=== PATIENT | male | born 1930 | race Caucasian/White ===

== ENCOUNTER → 2016-12-04 | Outpatient (CLI) | payer OTHER, BC ==
[~2016-12-04] MED LIST: ACETAMINOPHEN325 M1 PO; AMLODIPINE BESYL5 MG; ASPIRIN325 PO; CLONAZEPAM 1 MG1 M1 PO; CLOTRIMAZOLE-BE15 GM TP; CO Q-10100 MG PO; FAMOTIDINE 20 M20 MG PO; FAMOTIDINE PO; FLOMAX PO; FLOMAX0.4 MG PO; HYDROCODONE-AP1 EAC6 PO; LOPRESSOR25 PO; MOBIC7.5 MG PO; OMEPRAZOLE20 M2 PO; PEPCID20 MG PO; PLAVIX 75 MG TA75 MG; PRAVACHOL40 MG PO; TOPROL XL25 MG PO; ZESTRIL20 MG PO
== END ==
LOC: CAT 10:42
DX: R55 Syncope and collapse (principal)

== ENCOUNTER 2017-08-23 11:14 | Emergency (ER) | payer OTHER, BC ==
[~2017-08-23] VITALS: Ht 170.2 cm; Wt 62.6 kg
[2017-08-23 11:16] VITALS: BP 195/92
== END 2017-08-23 14:35 | disposition home or self-care (01) ==
LOC: ER 11:14
DX: S01.111A Laceration without foreign body of right eyelid and periocular area, initial encounter (principal); S09.90XA Unspecified injury of head, initial encounter; K21.9 Gastro-esophageal reflux disease without esophagitis; I10 Essential (primary) hypertension; E78.5 Hyperlipidemia, unspecified; Z86.73 Personal history of transient ischemic attack (TIA), and cerebral infarction without residual deficits; Z85.038 Personal history of other malignant neoplasm of large intestine; Z88.1 Allergy status to other antibiotic agents; W10.9XXA Fall (on) (from) unspecified stairs and steps, initial encounter; Y93.89 Activity, other specified; Y92.89 Other specified places as the place of occurrence of the external cause; Y99.8 Other external cause status

== ENCOUNTER 2018-04-17 11:02 | Inpatient (IN) | payer OTHER, BC ==
[~2018-04-17] VITALS: Ht 170.2 cm; Wt 64.1 kg
--- NOTE | ~2018-04-17 | EKG ---
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
--- NOTE | ~2018-04-17 | EKG ---
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
--- NOTE | ~2018-04-17 | EKG ---
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: milvia : 1930 Requested By: Jens Rachel Order Number: [id number] MD: Lee Moreira Measurements Intervals [place] Rate: 98 P: 39 DE: 146 QRS: -26 QRSD: 93 T: 55 QT: 390 QTc: 499 Interpretive Statements Sinus rhythm Multiform ventricular premature complexes Borderline left axis deviation Compared to ECG 01/04/2016 10:31:45 Ventricular premature complex(es) now present Atrial premature complex(es) no longer present Electronically Signed On 04-18-2018 17:39:15 CDT by Lee Moreira [email or web address] <ELECTRONICALLY SIGNED> By: Lee Moreira MD 04/18/18 1739 1122 1122 Lee Moreira MD /EPI
--- NOTE | ~2018-04-17 | 2DMMODE ---
[facility] [place] [address] 2 D/M-MODE ECHOCARDIOGRAM Name: ERICA RITCHIE Room #: 202-P [facility]#: [id number] Admission: 04/17/18 Attend Phys: Faisal Ahumada, Discharge: Date of : 30 Date of Service: 04/19/18 1202 Report #: [id number] THIS REPORT FOR: //name// APPROVED REPORT Study performed: 04/18/2018 10:13:09 EXAM: Comprehensive 2D, Doppler, and color-flow Echocardiogram Patient Location: Bedside Room #: 206 Status: routine BSA: 1.73 HR: 77 bpm BP: 147/100 mmHg Rhythm: PVC's Risk Factors: Cardiac Risk Factors: HTN, Hyperlipidemia Indications CVA/TIA CAD Hypertension/HDD PAF 2D Dimensions IVSd: 10.06 (7-11mm) LVOT Diam: 19.89 (18-24mm) LVDd: 48.38 mm PWd: 12.53 (7-11mm) Ascending Ao: 29.29 (22-36mm) LVDs: 36.41 (25-40mm) Aortic Root: 32.91 mm IVC: 19.00 mm Volumes Left Atrial Volume (Systole) Single Plane 4CH: 28.48 mL Single Plane 2CH: 32.92 mL LA ESV Index: 21.00 mL/m2 Aortic Valve AoV Peak Hugo.: 0.82 m/s AO Peak Gr.: 3.55 mmHg LVOT Max P.30 mmHg LVOT Max V: 0.76 m/s CARIDAD Vmax: 2.86 cm2 Mitral Valve E/A Ratio: 0.6 [facility] [email or web address] [address] 2 D/M-MODE ECHOCARDIOGRAM Name: ERICA RITCHIE Room #: 202-P [facility]#: [id number] Admission: 04/17/18 Attend Phys: Faisal Ahumada, Discharge: Date of : 30 Date of Service: 04/19/18 1202 Report #: [id number] MV Decel. Time: 341.71 ms MV E Max Hugo.: 0.37 m/s MV A Hugo.: 0.66 m/s MV PHT: 99.10 ms Pulmonary Vein P Vein S: 0.51 m/s P Vein A: 0.24 m/s P Vein D: 0.24 m/s P Vein A Dur.: 155.7 msec P Vein S/D Ratio: 2.13 Tricuspid Valve TR Peak Hugo.: 1.12 m/s RAP Estimate: 5.00 mmHg TR Peak Gr.: 4.98 mmHg Left Ventricle The left ventricle is normal size. Borderline concentric left ventricular hypertrophy. The left ventricular systolic function is normal. The left ventricular ejection fraction is within the normal range. LVEF is 55-60%. Mild diastolic dysfunction is present (impaired relaxation pattern). Right Ventricle The right ventricle is normal size. The right ventricular systolic function is normal. Atria The left atrium size is normal. The right atrium size is normal. Aortic Valve The aortic valve is not well visualized. The aortic valve appears normal in structure. Trace aortic regurgitation. There is no aortic valvular stenosis. Mitral Valve The mitral valve is normal in structure. Mild mitral regurgitation. No evidence of mitral valve stenosis. Tricuspid Valve The tricuspid valve is normal in structure. Trace tricuspid regurgitation. Unable to assess PAP pressure. Pulmonic Valve Pulmonic valve is not well visualized. There is no pulmonic valvular regurgitation noted. [facility] [address] [place] [address] 2 D/M-MODE ECHOCARDIOGRAM Name: ERICA RITCHIE Tino Room #: 202-P [facility] IN .R.#: [id number] Admission: 04/17/18 Attend Phys: Faisal Ahumada, Discharge: Date of : 30 Date of Service: 04/19/18 1202 Report #: [id number] Great Vessels The aortic root is normal in size. The ascending aorta is normal in size. IVC is normal in size and collapses >50% with inspiration. Pericardium There is no pericardial effusion. <Conclusion> The left ventricle is normal size. Borderline concentric left ventricular hypertrophy. LVEF is 55-60%. Mild diastolic dysfunction is present (impaired relaxation pattern). The right ventricle is normal size. The left atrium size is normal. Trace aortic regurgitation. Mild mitral regurgitation. Trace tricuspid regurgitation. Unable to assess PAP pressure. The aortic root is normal in size. There is no pericardial effusion. <ELECTRONICALLY SIGNED> By: Osito Guillory MD, FACC 04/19/18 120 01 01 Osito Guillory MD, FACC /INF
--- NOTE | ~2018-04-17 | HC ---
[facility] [place] [address] CONSULTATION Name: ERICA RITCHIE Tino Room #: 202-P [facility] IN .R.#: [id number] Admission: 04/17/18 Attend Phys: Faisal Ahumada MD Discharge: 04/20/18 Date of : 30 Report #: [id number] THIS REPORT FOR: //name// CC: Faisal Ahumada HISTORY OF PRESENT ILLNESS: The patient is an 88-year-old man who was admitted to the hospital yesterday. History is obtained from his and from the medical record. The patient is very demented. His became concerned that he might be having a stroke because he had difficulty walking. He was complaining of dizziness and nausea. She herself thought that he was having anxiety attacks, which he has frequently. He frequently hallucinates and he is not sleeping well. When she has threatened him with coming to the Emergency Department in the past, he has always resisted this, but on this occasion he did not resist her pleas to go to the ER, which made her most convinced that that would be the right thing to do. The patient has a history of previous TIA and has problems with irregular heart rate and vertigo. The patient has severe hearing loss and refuses hearing aids, and he also has macular degeneration and has very, very poor vision. PAST MEDICAL HISTORY: Positive for a colon cancer removed in 1996. He did not have chemo or radiation. He has had coronary artery disease with 3-vessel disease. Hypertension and hyperlipidemia. Cataract removal. CURRENT MEDICATIONS: Aspirin, pravastatin, and tamsulosin. ALLERGIES: CIPROFLOXACIN AND METRONIDAZOLE. SOCIAL HISTORY: Negative for tobacco use or alcohol use. REVIEW OF SYSTEMS: From his indicates that he does have frequent anxiety attacks and is having a lot of hallucinations, both visual and auditory. He denies symptoms of urinary tract infection or upper respiratory tract infection. He denies chest pain, back pain, or rash. PHYSICAL EXAMINATION: VITAL SIGNS: At this hour, blood pressure 151/94, pulse 49, temperature 36.8. GENERAL APPEARANCE: The patient is a very elderly man lying comfortably in bed, in no apparent distress, who is not agitated or exhibiting any panic behavior at this time. NECK: Supple. NEUROLOGIC: Mental status: The patient is very confused, is not oriented, could not do simple calculations, could spell the word world forward, but not backward, could not tell time on the clock, could not remember any of 3 objects in 3 minutes. Cranial nerve testing revealed the pupils to be very small, but equal. [address] [address] CONSULTATION Name: ERICA RITCHIE Room #: 202-P [facility].#: [id number] Admission: 04/17/18 Attend Phys: Faisal Ahumada MD Discharge: 04/20/18 Date of : 30 Report #: [id number] Extraocular movements were full. Facial sensation was normal. The face did appear symmetrical. Hearing was impaired significantly bilaterally. Tongue was normal. Motor testing revealed good power in his arms and legs. There was no tremor or involuntary movements, no rigidity and no bradykinesia. Sensory testing, he did apparently appreciate touch equally on both sides. Coordination testing was difficult for him to comprehend. He was able to stand and take a couple of steps, which were wide based. Reflexes were decreased throughout. A CT scan of the head showed possible old left lacunar infarction, otherwise unremarkable except for significant atrophy of age. Carotid Dopplers showed no hemodynamically significant carotid stenosis. LABORATORY TESTING: Was normal with the exception of a platelet count of 112,000. Blood chemistries were normal with the exception of a glucose of 166. IMPRESSION: The patient is very demented. His MCV is normal, but in view that he had a colon resection, a B12 should be checked for. I do not believe he had a new stroke. The symptoms apparently are resolving at the present time. <ELECTRONICALLY SIGNED> By: Des Salamanca MD 04/21/18 1526 1436 1902 Des Salamanca MD /nt
[2018-04-17 11:07] VITALS: BP 196/96
[2018-04-17 11:30] LABS: ABSOLUTE NEUTROPHILS 3.3 thou/uL (1.4-8.2); BASOPHILS 0.7 % (0.0-2.0); EOSINOPHILS 1.7 % (0.0-3.0); HEMATOCRIT 45.7 % (42.0-52.0); HEMOGLOBIN 15.6 gm/dL (14.0-18.0); LYMPHOCYTES 22.1 % (24.0-44.0); MCH 31.4 pg (26.0-34.0); MCHC 34.2 g/dL (28.0-37.0); MCV 91.8 fL (80.0-100.0); MONOCYTES 7.6 % (1.0-8.0); PLATELET COUNT 112 thou/uL (150-400); POLYS 67.9 % (36.0-66.0); RBC 4.98 mil/uL (4.50-6.00); RDW 13.3 % (10.5-14.5); WBC 4.8 thou/uL (4.0-11.0)
[2018-04-17 11:37] LABS: ANION GAP 3 mmol/L (7-16); BUN 16 mg/dL (7-18); CALCIUM 9.4 mg/dL (8.5-10.1); CHLORIDE 103 mmol/L (98-107); CO2 30 mmol/L (21-32); CREATININE 1.1 mg/dL (0.7-1.3); GLUCOSE 166 mg/dL (74-106); POTASSIUM 3.8 mmol/L (3.5-5.1); SODIUM 136 mmol/L (136-145)
[2018-04-17] MEDS ORDERED: ASPIR 8181 MG PO (11:39)
[2018-04-17 11:44] LABS: ALBUMIN 3.6 g/dL (3.4-5.0); SGOT 23 U/L (15-37); SGPT 25 U/L (30-65); TOTAL BILIRUBIN 0.7 mg/dL (<0.1-1.0); TOTAL PROTEIN 6.9 g/dL (6.4-8.2); TROPONIN-I <0.06 ng/mL (<0.06)
[2018-04-17 12:27] LABS: URINE BILIRUBIN NEGATIVE (Negative); URINE BLOOD NEGATIVE (Negative); URINE CLARITY CLEAR; URINE COLOR YELLOW; URINE GLUCOSE-RANDOM* TRACE (Negative); URINE KETONES NEGATIVE (Negative); URINE LEUKOCYTES-REFLEX NEGATIVE (Negative); URINE NITRITE-REFLEX NEGATIVE (Negative); URINE PROTEIN (DIPSTICK) 1+ (Negative); URINE UROBILINOGEN 0.2 E.U./dl (0.2-1.0)
[2018-04-17 12:37] LABS: BACTERIA-REFLEX None Seen /HPF (None Seen); CASTS None Seen /LPF (None Seen); CRYSTALS None Seen /LPF (None Seen); SQUAMOUS 0-3 Few /LPF (0-3); URINE RBC None Seen /HPF (0-2); URINE WBC-REFLEX None Seen /HPF (0-5)
[2018-04-17 12:54] VITALS: BP 159/78
[2018-04-17 13:33] VITALS: BP 173/87
[2018-04-17 13:54] VITALS: BP 146/88
[2018-04-17] MEDS ORDERED: MELOXICAM7.5 MG PO (14:37)
[2018-04-17 19:52] VITALS: BP 122/88
[2018-04-18] VITALS (8 sets, daily range): BP systolic 131–201; BP diastolic 84–105
[2018-04-19 04:50] VITALS: BP 144/95
[2018-04-19 07:39] VITALS: BP 126/74
[2018-04-19 11:14] VITALS: BP 150/95
[2018-04-19 16:07] VITALS: BP 139/84
[2018-04-19 20:58] VITALS: BP 189/92
[2018-04-20 00:36] VITALS: BP 139/83
[2018-04-20 05:11] VITALS: BP 117/64
[2018-04-20 07:14] VITALS: BP 111/61
[2018-04-20] MEDS ORDERED: PACERONE 200 M200 M1 PO (07:59)
[2018-04-20] MEDS ORDERED: CARDIZEM CD 18180 M3 PO (07:59)
[2018-04-20 10:52] VITALS: BP 125/67
[2018-04-20 11:56] VITALS: BP 125/67
== END 2018-04-20 12:02 | disposition home health service (06) | DRG 70 ==
LOC: ER 11:02 → EROBS 13:03 → 2N 13:03 → ENTRNSPT 04-20 11:51 → EDTRNSPTSTS 04-20 11:53 → 2N 04-20 12:02
PROVIDERS: Emergency Medicine
DX: G93.40 Encephalopathy, unspecified (principal); E43 Unspecified severe protein-calorie malnutrition; I48.91 Unspecified atrial fibrillation; K21.9 Gastro-esophageal reflux disease without esophagitis; I25.10 Atherosclerotic heart disease of native coronary artery without angina pectoris; E78.5 Hyperlipidemia, unspecified; I10 Essential (primary) hypertension; I73.9 Peripheral vascular disease, unspecified; I49.3 Ventricular premature depolarization; H91.90 Unspecified hearing loss, unspecified ear; R00.0 Tachycardia, unspecified; R09.02 Hypoxemia; I49.9 Cardiac arrhythmia, unspecified; I48.2 Chronic atrial fibrillation; I70.1 Atherosclerosis of renal artery; F03.90 Unspecified dementia, unspecified severity, without behavioral disturbance, psychotic disturbance, mood disturbance, and anxiety; N40.0 Benign prostatic hyperplasia without lower urinary tract symptoms; Z88.8 Allergy status to other drugs, medicaments and biological substances; Z86.73 Personal history of transient ischemic attack (TIA), and cerebral infarction without residual deficits; Z85.030 Personal history of malignant carcinoid tumor of large intestine; Z98.49 Cataract extraction status, unspecified eye; Z90.49 Acquired absence of other specified parts of digestive tract; Z88.1 Allergy status to other antibiotic agents; Z79.82 Long term (current) use of aspirin; Z79.899 Other long term (current) drug therapy
CPT/HCPCS: 10081

== ENCOUNTER 2018-05-02 11:32 | Inpatient (IN) | payer OTHER, BC ==
[~2018-05-02] VITALS: Ht 167.6 cm; Wt 56.5 kg
--- NOTE | ~2018-05-02 | EKG ---
[place] [address] 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 Compared to ECG 04/19/2018 08:14:42 Sinus rhythm no longer present Electronically Signed On 05-02-2018 13:07:39 CDT by Lee Moreira [email or web address] <ELECTRONICALLY SIGNED> By: Lee Moreira MD 05/02/18 1307 1142 1142 Lee Moreira MD /REHANA
[2018-05-02 11:32] VITALS: BP 179/82
[~2018-05-02 11:32] MED LIST changes: +ASPIR 8181 MG PO; +CARDIZEM CD 18180 M3 PO; +MELOXICAM7.5 MG PO; +PACERONE 200 M200 M1 PO
[2018-05-02 12:09] LABS: ANION GAP 6 mmol/L (7-16); BUN 22 mg/dL (7-18); CALCIUM 9.1 mg/dL (8.5-10.1); CHLORIDE 105 mmol/L (98-107); CO2 27 mmol/L (21-32); CREATININE 1.1 mg/dL (0.7-1.3); GLUCOSE 119 mg/dL (74-106); POTASSIUM 3.8 mmol/L (3.5-5.1); SODIUM 138 mmol/L (136-145)
[2018-05-02 12:15] LABS: HEMATOCRIT 39.7 % (42.0-52.0); HEMOGLOBIN 14.1 gm/dL (14.0-18.0); MCH 32.6 pg (26.0-34.0); MCHC 35.5 g/dL (28.0-37.0); MCV 91.8 fL (80.0-100.0); RBC 4.33 mil/uL (4.50-6.00); RDW 13.2 % (10.5-14.5)
[2018-05-02 12:18] LABS: TROPONIN-I <0.06 ng/mL (<0.06)
[2018-05-02 13:30] VITALS: BP 172/76
[2018-05-02 13:41] VITALS: BP 163/74
[2018-05-02 20:15] VITALS: BP 152/87
[2018-05-03] VITALS (11 sets, daily range): BP systolic 131–195; BP diastolic 52–111
[2018-05-03 10:12] LABS: HEMATOCRIT 44.9 % (42.0-52.0); HEMOGLOBIN 15.9 gm/dL (14.0-18.0); MCH 32.1 pg (26.0-34.0); MCHC 35.5 g/dL (28.0-37.0); MCV 90.6 fL (80.0-100.0); RBC 4.95 mil/uL (4.50-6.00); RDW 13.2 % (10.5-14.5); WBC 10.2 thou/uL (4.0-11.0)
[2018-05-03 10:24] LABS: CALCIUM 9.3 mg/dL (8.5-10.1); CREATININE 1.2 mg/dL (0.7-1.3); POTASSIUM 3.5 mmol/L (3.5-5.1)
[2018-05-03 10:29] LABS: ALBUMIN 3.9 g/dL (3.4-5.0); TOTAL BILIRUBIN 0.9 mg/dL (<0.1-1.0); TOTAL PROTEIN 7.3 g/dL (6.4-8.2)
[2018-05-04] VITALS (20 sets, daily range): BP systolic 86–227; BP diastolic 47–177
[2018-05-05 05:00] VITALS: BP 116/75
[2018-05-05] MEDS ORDERED: ATENOLOL 50MG T50 M1 PO (09:31)
[2018-05-05 09:52] VITALS: BP 155/84
[2018-05-05 12:55] VITALS: BP 155/84
[2018-05-05 13:47] VITALS: BP 155/84
[2018-05-05 14:27] VITALS: BP 155/84
== END 2018-05-05 14:12 | disposition home health service (06) | DRG 312 ==
LOC: ER 11:32 → EROBS 12:55 → 2N 12:55 → EROBS 14:01 → 2N 14:20 → ICU 05-03 10:38 → 2N 05-04 17:10 → ENTRNSPT 05-05 14:00 → EDTRNSPTSTS 05-05 14:02 → 2N 05-05 14:12
PROVIDERS: Emergency Medicine; Family Medicine
DX: I95.1 Orthostatic hypotension (principal); G93.41 Metabolic encephalopathy; K21.9 Gastro-esophageal reflux disease without esophagitis; I25.10 Atherosclerotic heart disease of native coronary artery without angina pectoris; E78.5 Hyperlipidemia, unspecified; I10 Essential (primary) hypertension; I73.9 Peripheral vascular disease, unspecified; I48.2 Chronic atrial fibrillation; I34.0 Nonrheumatic mitral (valve) insufficiency; F03.90 Unspecified dementia, unspecified severity, without behavioral disturbance, psychotic disturbance, mood disturbance, and anxiety; I35.1 Nonrheumatic aortic (valve) insufficiency; Z85.038 Personal history of other malignant neoplasm of large intestine; Z95.5 Presence of coronary angioplasty implant and graft; Z86.73 Personal history of transient ischemic attack (TIA), and cerebral infarction without residual deficits; Z98.49 Cataract extraction status, unspecified eye; Z90.49 Acquired absence of other specified parts of digestive tract; Z88.1 Allergy status to other antibiotic agents; Z88.8 Allergy status to other drugs, medicaments and biological substances; Z79.82 Long term (current) use of aspirin; Z79.899 Other long term (current) drug therapy
CPT/HCPCS: 10078; 10081; 10194

== ENCOUNTER 2018-07-04 11:56 | Emergency (ER) | payer OTHER, BC ==
[~2018-07-04] VITALS: Ht 165.1 cm; Wt 59.0 kg
--- NOTE | ~2018-07-04 | EKG ---
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: DOV : 1930 Requested By: Noelle Ashley Order Number: [id number] MD: Darin Brown Measurements Intervals [place] Rate: 79 P: ME: QRS: -37 QRSD: 90 T: 31 QT: 449 QTc: 515 Interpretive Statements Atrial fibrillation Ventricular premature complex Left axis deviation Nonspecific ST abnormality Compared to ECG 05/02/2018 11:42:12 Ventricular premature complex(es) now present atrial fibrillation has replaced sinus rhythm Electronically Signed On 07-04-2018 16:46:[address] JUSTICE by Darin Brown [email or web address] <ELECTRONICALLY SIGNED> By: Darin Brown MD, [facility] 07/04/18 1646 1205 1205 Darin Brown MD, [facility] /EPI
[~2018-07-04 11:56] MED LIST changes: +ATENOLOL 50MG T50 M1 PO
[2018-07-04] MEDS ORDERED: PACERONE 200 M200 M1 PO (12:27)
[2018-07-04] MEDS ORDERED: CARDIZEM CD 18180 M3 PO (12:27)
[2018-07-04] MEDS ORDERED: PRESERVISION T1 EACH PO (12:28)
[2018-07-04 12:39] LABS: BASOPHILS 0.9 % (0.0-2.0); EOSINOPHILS 0.9 % (0.0-3.0); HEMATOCRIT 43.6 % (42.0-52.0); LYMPHOCYTES 16.5 % (24.0-44.0); MCH 32.5 pg (26.0-34.0); MCHC 34.3 g/dL (28.0-37.0); MCV 94.7 fL (80.0-100.0); MONOCYTES 8.8 % (1.0-8.0); PLATELET COUNT 151 thou/uL (150-400); POLYS 72.9 % (36.0-66.0); RBC 4.61 mil/uL (4.50-6.00); RDW 14.4 % (10.5-14.5); WBC 5.5 thou/uL (4.0-11.0)
[2018-07-04 12:47] LABS: ANION GAP 7 mmol/L (7-16); BUN 20 mg/dL (7-18); CALCIUM 9.3 mg/dL (8.5-10.1); CHLORIDE 106 mmol/L (98-107); CO2 28 mmol/L (21-32); CREATININE 1.2 mg/dL (0.7-1.3); GLUCOSE 117 mg/dL (74-106); POTASSIUM 3.6 mmol/L (3.5-5.1); SODIUM 141 mmol/L (136-145)
[2018-07-04 12:55] LABS: ALBUMIN 3.8 g/dL (3.4-5.0); MAGNESIUM 2.2 mg/dL (1.8-2.4); SGOT 23 U/L (15-37); SGPT 28 U/L (30-65); TOTAL BILIRUBIN 0.8 mg/dL (<0.1-1.0); TOTAL PROTEIN 6.8 g/dL (6.4-8.2); TROPONIN-I <0.06 ng/mL (<0.06)
[2018-07-04 13:25] LABS: URINE BILIRUBIN NEGATIVE (Negative); URINE BLOOD NEGATIVE (Negative); URINE CLARITY CLEAR; URINE COLOR YELLOW; URINE GLUCOSE-RANDOM* NEGATIVE (Negative); URINE KETONES NEGATIVE (Negative); URINE LEUKOCYTES-REFLEX NEGATIVE (Negative); URINE NITRITE-REFLEX NEGATIVE (Negative); URINE PROTEIN (DIPSTICK) NEGATIVE (Negative); URINE UROBILINOGEN 0.2 E.U./dl (0.2-1.0)
[2018-07-04 15:15] VITALS: BP 131/57
[2018-07-04] MEDS ORDERED: ANTIVERT25 MG PO (15:23)
== END 2018-07-04 15:38 | disposition home or self-care (01) ==
LOC: ER 11:56
PROVIDERS: Nurse Practitioner Family
DX: E86.0 Dehydration (principal); T75.3XXA Motion sickness, initial encounter; R53.1 Weakness; K21.9 Gastro-esophageal reflux disease without esophagitis; I25.10 Atherosclerotic heart disease of native coronary artery without angina pectoris; E78.5 Hyperlipidemia, unspecified; H35.30 Unspecified macular degeneration; I10 Essential (primary) hypertension; I73.9 Peripheral vascular disease, unspecified; Z85.038 Personal history of other malignant neoplasm of large intestine; Z88.1 Allergy status to other antibiotic agents; Z90.49 Acquired absence of other specified parts of digestive tract; Z95.5 Presence of coronary angioplasty implant and graft; Z88.8 Allergy status to other drugs, medicaments and biological substances; Z86.73 Personal history of transient ischemic attack (TIA), and cerebral infarction without residual deficits

== ENCOUNTER 2018-12-17 15:22 | Inpatient (IN) | payer OTHER, BC ==
[~2018-12-17] VITALS: Ht 170.2 cm; Wt 57.6 kg
[~2018-12-17 15:22] MED LIST changes: +ANTIVERT25 MG PO; +PRESERVISION T1 EACH PO
[2018-12-17 15:23] VITALS: BP 124/88
[2018-12-17 15:41] LABS: URINE BILIRUBIN NEGATIVE (Negative); URINE BLOOD NEGATIVE (Negative); URINE CLARITY CLEAR; URINE COLOR YELLOW; URINE GLUCOSE-RANDOM* NEGATIVE (Negative); URINE KETONES NEGATIVE (Negative); URINE LEUKOCYTES-REFLEX TRACE (Negative); URINE NITRITE-REFLEX NEGATIVE (Negative); URINE PROTEIN (DIPSTICK) 1+ (Negative); URINE SPECIFIC GRAVITY 1.015 (1.005-1.035); URINE UROBILINOGEN 0.2 E.U./dl (0.2-1.0)
[2018-12-17 15:49] LABS: BASOPHILS 0.7 % (0.0-2.0); EOSINOPHILS 0.6 % (0.0-3.0); HEMATOCRIT 43.7 % (42.0-52.0); HEMOGLOBIN 15.1 gm/dL (14.0-18.0); LYMPHOCYTES 16.6 % (24.0-44.0); MCH 32.3 pg (26.0-34.0); MCHC 34.6 g/dL (28.0-37.0); MCV 93.5 fL (80.0-100.0); MONOCYTES 8.5 % (1.0-8.0); PLATELET COUNT 144 thou/uL (150-400); POLYS 73.6 % (36.0-66.0); RBC 4.67 mil/uL (4.50-6.00); RDW 13.5 % (10.5-14.5); WBC 5.4 thou/uL (4.0-11.0)
[2018-12-17 15:50] LABS: SQUAMOUS 0-3 Few /LPF (0-3)
[2018-12-17 15:51] LABS: MUCUS 0-3 Light strn/LPF (None Seen); URINE WBC-REFLEX 0-5 Rare /HPF (0-5); YEAST-REFLEX Present (None Seen)
[2018-12-17 15:52] LABS: BACTERIA-REFLEX 1-9 Few /HPF (None Seen); CASTS None Seen /LPF (None Seen); CRYSTALS None Seen /LPF (None Seen); URINE RBC None Seen /HPF (0-2)
[2018-12-17 15:54] LABS: ANION GAP 8 mmol/L (7-16); BUN 15 mg/dL (7-18); CHLORIDE 103 mmol/L (98-107); CO2 31 mmol/L (21-32); CREATININE 1.1 mg/dL (0.7-1.3); GLUCOSE 112 mg/dL (74-106); POTASSIUM 3.5 mmol/L (3.5-5.1); SODIUM 142 mmol/L (136-145)
[2018-12-17 16:04] LABS: SGOT 29 U/L (15-37); SGPT 44 U/L (30-65); TOTAL BILIRUBIN 0.6 mg/dL (<0.1-1.0); TOTAL PROTEIN 7.1 g/dL (6.4-8.2); TROPONIN-I <0.06 ng/mL (<0.06)
[2018-12-17] MEDS ORDERED: AMIODARONE HCL100 MG PO (16:22)
[2018-12-17] MEDS ORDERED: PRAVASTATIN SOD20 MG PO (16:24)
[2018-12-17] MEDS ORDERED: PROTONIX40 M1 PO (16:26)
[2018-12-17 18:34] VITALS: BP 174/85
--- NOTE | 2018-12-17 18:42 | NUR ---
ATTEMPTED TO CALL REPORT TO 3W. NURSE UNAVAILABLE IN HUDDLE AT THIS TIME AND WILL RETURN CALL
[2018-12-17 19:03] VITALS: BP 174/85
[2018-12-17 19:10] VITALS: BP 166/89
--- NOTE | 2018-12-17 19:58 | NUR ---
ADMISSION NOTE: EXPLAINED THE FALL PROTOCAL AND ADMINISTERED HIS FIRST DOSE OF ANTIBIOTIC IV. INSTRUCTED HIM TO CALL IF HE NOTICES ANY RASH OR ITCHING. HE UIS ALERT AND ORIENTED X4, BUT HAS LIMITED PROBLEM SOLVING SKILLS. HE IS CLOSE TO DESK IN CASE OF FORGETFULNESS. BED ALALRM SET. FALL PROTOCAL INITIATED. IV FLUIDS STARTED INTO RT AC. HE CALM AND COOPERATIVE. TELEMETRY INTERFERENCE EXPLAINED TO PATIENT, HE HAS SIGNED THE EDUCATIONAL MATERIAL PROVIDED.
[2018-12-17 22:48] VITALS: BP 146/75
[2018-12-17 23:30] VITALS: BP 147/69
--- NOTE | 2018-12-18 03:14 | NUR ---
continues to be forgetful, he does not remember to call for assist out of bed. he usually needs to stand to urinate. cooperative and pleasant. continues on iv fluids.
[2018-12-18 03:45] VITALS: BP 131/78
[2018-12-18 07:13] VITALS: BP 143/75
--- NOTE | 2018-12-18 08:23 | EKG ---
[place] [address] [facility] [place] [address] ELECTROCARDIOGRAM REPORT Name: ERICA RITCHIE Room #: 351-P ADM IN M.R.#: [id number] ������������������ Admission: 12/17/18 ������������������ Attend Phys: Faisal Ahumada MD Discharge: ������������������ Date of : 30 Report #: [id number] ����������������������������������������������������������������� [id number] THIS REPORT FOR: //name// [facility] ED Test Date: 2018-12-17 Test Time: 15:38:36 Pat Name: ERICA RITCHIE Department: Room: [facility] Gender: M Supervisor Pit [employer]iliaries: MARCI : 1930 Requested By: Darwin Crane Order Number: [id number] MD: Mohit Bhagat Measurements Intervals [place] Rate: 78 P: 0 KS: 51 QRS: -31 QRSD: 102 T: 22 QT: 492 QTc: 561 Interpretive Statements Sinus rhythm with arrhythmia Left axis deviation Nonspecific ST segment abnormalities Prolonged QT interval Compared to ECG 07/04/2018 12:05:56 Prolonged QT interval now present ST (T wave) deviation still present Electronically Signed On 12-18-2018 8:23:20 CDT by Mohit Bhagat [email or web address] ��������������������������������������������� <ELECTRONICALLY SIGNED> ���������������������������������������� By: Mohit Bhagat MD ��������������������������������������������� 12/18/18 08 1538 37 Mohit Bhagat MD /REHANA
[2018-12-18 12:02] VITALS: BP 153/70
[2018-12-18 12:52] VITALS: BP 153/70
--- NOTE | 2018-12-18 13:50 | NUR ---
PT ALERT AND ORIENTED TIMES FOUR. VSS, 98%RA, SR ON TELE. PT DENIES/SOA/DIZZINESS. PT TOLERATES MEDS AND MEALS. PT UP TO CHAIR WITH STANDBY ASSIST. PT SLOWLY PROGRESSING TOWRADS POC GOALS.
== END 2018-12-18 14:34 | disposition home or self-care (01) | DRG 305 ==
LOC: ER 15:22 → EROBS 18:31 → 3W 19:03
PROVIDERS: Physician Assistant; ADMIT Family Medicine
DX: I16.0 Hypertensive urgency (principal); N39.0 Urinary tract infection, site not specified; I77.9 Disorder of arteries and arterioles, unspecified; K21.9 Gastro-esophageal reflux disease without esophagitis; I25.10 Atherosclerotic heart disease of native coronary artery without angina pectoris; E78.5 Hyperlipidemia, unspecified; I10 Essential (primary) hypertension; H35.30 Unspecified macular degeneration; I73.9 Peripheral vascular disease, unspecified; H91.93 Unspecified hearing loss, bilateral; Z90.49 Acquired absence of other specified parts of digestive tract; Z85.038 Personal history of other malignant neoplasm of large intestine; Z86.73 Personal history of transient ischemic attack (TIA), and cerebral infarction without residual deficits; Z98.41 Cataract extraction status, right eye; Z98.42 Cataract extraction status, left eye; Z88.1 Allergy status to other antibiotic agents; Z88.8 Allergy status to other drugs, medicaments and biological substances; Z79.82 Long term (current) use of aspirin
CPT/HCPCS: 10879

== ENCOUNTER 2019-01-14 17:57 | Emergency (ER) | payer OTHER, BC ==
[~2019-01-14] VITALS: Ht 167.6 cm; Wt 73.5 kg
[~2019-01-14 17:57] MED LIST changes: +AMIODARONE HCL100 MG PO; +PRAVASTATIN SOD20 MG PO; +PROTONIX40 M1 PO
[2019-01-14 18:41] LABS: ABSOLUTE NEUTROPHILS 3.1 thou/uL (1.4-8.2); BASOPHILS 0.7 % (0.0-2.0); EOSINOPHILS 0.6 % (0.0-3.0); HEMATOCRIT 41.4 % (42.0-52.0); HEMOGLOBIN 14.1 gm/dL (14.0-18.0); LYMPHOCYTES 19.7 % (24.0-44.0); MCH 31.9 pg (26.0-34.0); MCHC 34.2 g/dL (28.0-37.0); MCV 93.4 fL (80.0-100.0); MONOCYTES 9.4 % (1.0-8.0); PLATELET COUNT 124 thou/uL (150-400); POLYS 69.6 % (36.0-66.0); RBC 4.43 mil/uL (4.50-6.00); RDW 13.6 % (10.5-14.5); WBC 4.4 thou/uL (4.0-11.0)
[2019-01-14 18:44] LABS: ANION GAP 8 mmol/L (7-16); BUN 15 mg/dL (7-18); CALCIUM 8.9 mg/dL (8.5-10.1); CHLORIDE 104 mmol/L (98-107); CO2 28 mmol/L (21-32); CREATININE 1.2 mg/dL (0.7-1.3); GLUCOSE 166 mg/dL (74-106); POTASSIUM 3.5 mmol/L (3.5-5.1); SODIUM 140 mmol/L (136-145)
[2019-01-14 18:52] LABS: TROPONIN-I <0.06 ng/mL (<0.06)
[2019-01-14 19:00] LABS: URINE BILIRUBIN NEGATIVE (Negative); URINE BLOOD NEGATIVE (Negative); URINE CLARITY CLEAR; URINE COLOR YELLOW; URINE GLUCOSE-RANDOM* NEGATIVE (Negative); URINE KETONES NEGATIVE (Negative); URINE LEUKOCYTES-REFLEX NEGATIVE (Negative); URINE NITRITE-REFLEX NEGATIVE (Negative); URINE PROTEIN (DIPSTICK) TRACE (Negative); URINE SPECIFIC GRAVITY <= 1.005 (1.005-1.035); URINE UROBILINOGEN 0.2 E.U./dl (0.2-1.0)
[2019-01-14] MEDS ORDERED: PRINIVIL5 MG PO (19:39)
[2019-01-14 20:00] VITALS: BP 179/86
--- NOTE | 2019-01-16 09:11 | EKG ---
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: : 1930 Requested By: Amrita Bautista Order Number: [id number] MD: Darin Brown Measurements Intervals [place] Rate: 87 P: 42 DC: 185 QRS: -36 QRSD: 102 T: 69 QT: 411 QTc: 495 Interpretive Statements Sinus rhythm Atrial premature complex Left axis deviation ST depression, anterolateral leads Borderline prolonged QT interval Compared to ECG 12/17/2018 15:38:36 No significant change was found Electronically Signed On 01-16-2019 9:11:07 CDT by Darin Brown [email or web address] ��������������������������������������������� <ELECTRONICALLY SIGNED> ���������������������������������������� By: Darin Brown MD, [facility] ��������������������������������������������� 01/16/19910 02 02 Darin Brown MD, [facility] /EPI
== END 2019-01-14 20:01 | disposition home or self-care (01) ==
LOC: ER 17:57
PROVIDERS: Emergency Medicine
DX: I10 Essential (primary) hypertension (principal); R42 Dizziness and giddiness; I25.10 Atherosclerotic heart disease of native coronary artery without angina pectoris; E78.5 Hyperlipidemia, unspecified; I73.9 Peripheral vascular disease, unspecified; K21.9 Gastro-esophageal reflux disease without esophagitis; Z88.1 Allergy status to other antibiotic agents; Z88.8 Allergy status to other drugs, medicaments and biological substances; Z90.49 Acquired absence of other specified parts of digestive tract; Z95.5 Presence of coronary angioplasty implant and graft

== ENCOUNTER 2019-01-31 15:55 | Inpatient (IN) | payer OTHER, BC ==
[~2019-01-31] VITALS: Ht 170.2 cm; Wt 57.2 kg
[~2019-01-31 15:55] MED LIST changes: +DEPAKOTE 250MG250 M1 PO; +PRINIVIL5 MG PO; +VALIUM2 MG PO
[2019-01-31 23:00] VITALS: BP 188/84
--- NOTE | 2019-02-01 04:41 | NUR ---
FROM 4TH FLOOR LAST NIGHT, PATIENT HAS TROUBLE WITH VISION AND MEMORY, STATES THAT HIS WILL SIGN CONSENTS FOR HIM THIS MORNING. DR DANG WILL FOLLOW PATIENT WITH DR CHRISTIANSON. PATIENT IS USING URINAL OVERNIGHT WITH A LITTLE HELP WITH POSITIONING. PLEASANT AND AGREES WITH BED ALARM USE
[2019-02-01 05:30] LABS: HEMOGLOBIN 12.7 gm/dL (14.0-18.0); MCH 32.6 pg (26.0-34.0); MCHC 35.4 g/dL (28.0-37.0); MCV 92.1 fL (80.0-100.0); RBC 3.91 mil/uL (4.50-6.00); RDW 14.2 % (10.5-14.5); WBC 4.4 thou/uL (4.0-11.0)
[2019-02-01 05:49] LABS: CALCIUM 8.8 mg/dL (8.5-10.1)
[2019-02-01 06:01] LABS: POTASSIUM 2.7 mmol/L (3.5-5.1)
[2019-02-01 09:00] VITALS: BP 149/95
--- NOTE | 2019-02-01 12:04 | NUR ---
GIAN DOBSON IS PATIENT'S DAUGHTER, AND IS ALSO HIS HEALTHCARE POWER OF ANIMAL RIDES MANAGER. SHE HAS REQUESTED THAT ANY PAPERWORK/FORMS THAT NEED TO BE SIGNED SHOULD BE FAXED TO HER, HER MOTHER IS NOT ABLE TO SEE THEM WELL DUE TO MACULAR DEGENRATION. HER FAX NUMBER IS [phone]. SHE ALSO STATED THAT ALTHOUGH HER MOTHER IS LISTED FIRST A CONTACT, SHE IS HARD OF HEARING, AND GIAN REQUESTED THAT INFORMATION ALSO BE COMMUNICATED TO HER, SHE FEARS HER MOM WILL NOT HEAR IT CORRECTLY. GIAN'S PHONE NUMBER IS [phone]. THIS INFORMATION WILL BE COMMUNICATED TO THE NURSE AND THE CM.
--- NOTE | 2019-02-01 14:18 | NUR ---
Nutrition: pt admitted with AMS, cerebral infarction to rehab unit. Chart reviewed. Familiar with pt from acute stay. Intake fair, 50-60% of meals. On pureed diet for dysphagia. ST follows. Ensure pudding being offered on trays and pt enjoys the supplements. Weights stable around 125# past 9 months. Correct pt reported ht is 5'7" not 5'10". K-2.7 received IV bolus as was unable to swallow the pills. On stool regimen. Is legally blind and needs assist with meal set up. Low risk with nutrition interventions in place.
--- NOTE | 2019-02-01 15:45 | NUR ---
cm visit with lula and edward up in recliner chair. intro to team meeting and dcp. " we spoke with you on other unite, all still say. live in house, nieces set up meds in pill box, we both have some trouble seeing. live in house, uses cane outside, few steps to enter, he was able to feed him self meals at home, dress self and shower himself, hh was with leahathe they were good."/ lula, " can call dr villa after meeting and she will explain it all to us thank you"/lula
--- NOTE | 2019-02-01 19:20 | NUR ---
ASSUMED CARES AT 0700. PT ORIENTED TO SELF AND PLACE ONLY. DENIES PAIN. VITALS REMAINED STABLE. SWALLOWING PRECAUTIONS IN PLACE, PILLS CRUSHED AND MIXED WITH APPLESAUCE AND PT SWALLOWED WITH NO PROBLEM. CONTINUES TO HAVE BRUISING ON RLE. REPOSITIONED Q2H. UP WITH MIN ASSIST, GAITBELT AND WALKER AND CUES R/T LOSS OF VISION. CALL LIGHT WITHIN REACH. FALL PRECAUTIONS IN PLACE. Q1H VISUAL CHECK
[2019-02-01 19:30] VITALS: BP 138/62
--- NOTE | 2019-02-02 03:43 | NUR ---
assumed care at approx 1900 evening 01/31. pt sitting up in recliner in room resting at change of shift. pt somwhat confused however pleasant and cooperative. pt hard of hearing. IVF Potsssium piggyback running at change of shift. pt took hs meds crushed in applesauce tolerating well. pt appears to be sleeping soundly with hourly rounding checks. chair alarm on and call light in reach. will continue to monitor.
[2019-02-02 06:17] LABS: CALCIUM 9.2 mg/dL (8.5-10.1); CREATININE 1.2 mg/dL (0.7-1.3); MAGNESIUM 2.1 mg/dL (1.8-2.4); POTASSIUM 3.5 mmol/L (3.5-5.1)
[2019-02-02 07:45] VITALS: BP 171/65
--- NOTE | 2019-02-02 13:11 | NUR ---
ASSUMED CARES AT 0700. PT ORIENTED TO SELF AND SITUATION ONLY, CONFUSED AND FORGETFUL. REMAINS ON ASPIRATION PRECAUTIONS. DENIES PAIN. BP ELEVATED THIS AM, PCP NOTIFIED AND ORDERS RECEIVED. LS CLEAR, LOOSE COUGH THIS AM, SATS STABLE ON RA. SKIN REMAINS INTACT, BRUISING REMAINS ON R THIGH AND LEG AND ON ARMS. IV ON LEFT FOREARM PATENT AND SL. BS ACTIVE*4, ABDOMEN SOFT AND FLAT, LAST REPORTED BM 7/5, MIRALAX ADMINISTERED AND PT PASSING FLATUS. PT UP WITH 1 PERSON MIN ASSIST, STEP BY STEP CUES WITH TRANSFERS AND AMBULATION. Q1H VISUAL CHECKS. CALL LIGHT WITHIN REACH. FALL PRECAUTIONS IN PLACE
[2019-02-02 14:06] VITALS: BP 151/81
[2019-02-02 17:07] VITALS: BP 151/72
[2019-02-02 19:22] VITALS: BP 144/64
--- NOTE | 2019-02-03 03:49 | NUR ---
NECTAR THICK FLUIDS WITH HEAD OF BED UP ENCOURAGED, PATIENT LIKES TEA BEST. EYEYEDOPS TO LEFT EYE APPRECIATED. PATIENT WET DURING ATTEMPT AT USING URINAL. LEFT FOREARM SALINE LOCK PATENT.
--- NOTE | 2019-02-03 04:03 | NUR ---
TOLERATING NECTAR THICK FLUIDS WITH HEAD OF BED UP. PATIENT LIKES APPLE JUICE BEST. MEDS CRUSHED IN APPLE SAUCE. EYEDROPS TO LEFT EYE APPRECIATED. PATIENT WE DURING ATTEMPT AT USING URINAL. LEFT FOREARM SALINE LOCK REMAINS PATENT.
[2019-02-03 07:45] VITALS: BP 142/69
[2019-02-03 19:20] VITALS: BP 150/66
--- NOTE | 2019-02-03 19:21 | NUR ---
ASSUMED CARE OF PT AT 0715. PT IS A&O TO PERSON AND PLACE AND VITAL SIGNS ARE STABLE. PT TOLERATED PO MEDICATIONS CRUSHED IN APPLESAUCE, SWALLOW STUDY THIS SHIFT. PT TOLERATED PUREE DIET WITH NECTAR THICK LIQUIDS. IV LEFT FOREARM SL PATENT, DRESSING C/D/I, NO REDNESS OR S/S OF INFILTRATION, EVISCERATION, OR INFECTION. PATIENT DENIED PAIN THIS SHIFT AND PARTICIPATED IN SCHEDULED THERAPIES. TRANSFERED AND AMBULATED WITH 1 PERSON MIN ASSIST WITH GAIT BELT AND WALKER. POOR VISION AND REQUIRES ADDITIONAL GUIDANCE AND ASSISTANCE. FALL PRECAUTIONS IN PLACE AND NURSING WILL CONTINUE TO MONITOR.
--- NOTE | 2019-02-04 03:09 | NUR ---
assumed care at approx 1900 evening 02/03. pt sitting up in recliner at change of shift resting and visiting with family at bedside. pt pleasant and cooperative. pt assisted up to bathroom to void and presently appears to be sleeping soundly with hourly rounding checks. bed alarm on and call light in reach. will continue to monitor.
[2019-02-04 07:46] VITALS: BP 147/78
--- NOTE | 2019-02-04 13:03 | NUR ---
ASSUMED CARES AT 0700. PT AWAKE, ORIENTED TO SELF AND PLACE, CONFUSED AND FORGETFUL. DENIES PAIN. ASPIRATION PRECAUTIONS MAINTAINED. VITALS REMAIN STABLE. CONTINUES TO HAVE BRUISING ON RLE. MILD BLE EDEMA, EXTREMITIES ELEVATED. UP IN THE DINING AREA FOR ALL MEALS. WORKED WITH THERAPY AND TOLERATED WELL. Q1H VISUAL CHECKS. CALL LIGHT WITHIN REACH. FALL PRECAUTIONS IN PLACE
--- NOTE | 2019-02-04 19:05 | NUR ---
daughter found walking pt in hallway. advised by this clinical writer that we need order for family to walk pt in hallway without staff help or order. daughter refused and stated she was fine and he was fine. pt walked to end of hallway with daughter and back to room. daughter continued to refuse this clinical writer and began talking to family about how pt should be able to be up on his own without any staff assitance. pt now back in his room in recliner with chair alarm on. family still here. will continue to monitor.
[2019-02-04 19:59] VITALS: BP 130/70
--- NOTE | 2019-02-05 01:15 | NUR ---
assumed care at approx 1900 evening 02/04. pts family here till approx 2100 then assisted pt into bed and assisted with changing to nightclothes. pt appropriate and cooperative. pt appears to be sleeping soundly with hourly rounding checks. bed alarm on and call light in reach. will continue to monitor.
[2019-02-05 07:47] VITALS: BP 151/86
--- NOTE | 2019-02-05 14:39 | NUR ---
ASSUMED CARES AT 0700. PT AWAKE, ALERT AND ORIENTED*2. CONFUSED AND FORGETFUL. DENIES PAIN. VITALS REMAIN STABLE. SKIN INTACT, BRUISES ON LATERAL RLE. PT EATING VERY POORLY, 10-15% OF EACH MEAL AND 10-15% OF SUPPLEMENTS OFFERED. ENCOURAGED TO EAT AND STAFF SITTING WITH PT DURING MEALS. UP WITH 1 MIN ASSIST AND CUES, AMBULATED WITH STAFF AND TOLERATED WELL. Q1H VISUAL CHECKS. CALL LIGHT WITHIN REACH. FALL PRECAUTIONS IN PLACE
[2019-02-05 19:40] VITALS: BP 105/53
--- NOTE | 2019-02-06 06:06 | NUR ---
PT LYING IN BED. VOIDING PER URINAL WITH SOME INCONTINENCE. DENIES PAIN. RESTING COMFORTABLY. NO NEEDS VOICED. CALL LIGHT WITHIN REACH. WILL CONTINUE TO PROVIDE FREQUENT OBSERVATION.
[2019-02-06 06:24] LABS: HEMATOCRIT 35.5 % (42.0-52.0); HEMOGLOBIN 12.3 gm/dL (14.0-18.0); MCH 32.4 pg (26.0-34.0); MCHC 34.7 g/dL (28.0-37.0); MCV 93.3 fL (80.0-100.0); RBC 3.81 mil/uL (4.50-6.00); RDW 14.1 % (10.5-14.5); WBC 4.8 thou/uL (4.0-11.0)
[2019-02-06 06:37] LABS: CALCIUM 9.1 mg/dL (8.5-10.1); CREATININE 1.5 mg/dL (0.7-1.3); POTASSIUM 3.7 mmol/L (3.5-5.1)
--- NOTE | 2019-02-06 07:24 | HC ---
[facility] [place] [address] CONSULTATION Name: ERICA RITCHIE Room #: 512-P [facility] IN M.R.#: [id number] Admission: 01/31/19 ������������������ Attend Phys: Jamel Vieyra MD Discharge: ������������������ Date of : 30 Report #: [id number] THIS REPORT FOR: //name// CC: Jamel Ahumada DATE OF SERVICE: 02/04/2019 NEUROBEHAVIORAL STATUS EXAM ATTENDING PHYSICIAN: Jamel Vieyra MD. CLINICAL PRESENTATION: The patient is an 88-year-old male admitted to the [facility] Rehab Unit for comprehensive inpatient rehabilitation program to improve functional mobility, activities of daily living and self-care and mental status secondary to acute mental status changes and cerebrovascular accident. He carries diagnoses of premorbid dementia, atrial fibrillation starting amiodarone, gastroesophageal reflux disease, urinary frequency and benign prostatic hypertrophy. A complete description of his medical condition and history can be found in his medical records. Neuropsychological consultation was requested to provide assistance in the assessment of cognitive and emotional status and to provide recommendations and services. The patient is reported to be living independently in a home with his . He is described as having been independent with basic activities of daily living. However, assistance with instrumental activities of daily living was described as necessary. The patient reported having a fourth grade education. 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 He has one child. Medical records indicate that his and niece are involved in his care. TECHNIQUES UTILIZED: Clinical interview, review of medical records, staff consultation and behavioral observation, mini mental status exam 2 brief version. EXAMINATION FINDINGS: The patient was alert and cooperative with the assessment. However, he was unaware of the reason for his hospitalization, the purpose of his treatment or his current location. He was not oriented to place or time. Increased anxiety is noted. Perseveration was noted during the interview regarding orientation to place and purpose of his hospitalziation. He does not report difficulty with sleep or appetite. Memory deficits are noted. He does not report previous treatment for depression, anxiety or alcohol/drug abuse. Performance on the MMSE 2 brief version was extremely low with a raw score of 1/16. He presents as hard of hearing. However, decreased auditory [facility] [address] [place] [address] CONSULTATION Name: ERICA RITCHIE Room #: 512-P [facility] IN ..#: [id number] Admission: 01/31/19 ������������������ Attend Phys: Jamel Vieyra MD Discharge: ������������������ Date of : 30 Report #: [id number] comprehension is noted. He was 1/3 for initial registration after numerous repetitions. He is 0/5 for orientation to time, 0/[address] He was 0/3 for immediate recall of 3 items after a brief time delay and distraction. The patient was tangential with confabulation noted throughout the interview. Word finding deficits along with being hard of hearing are also contributing to variability in functioning. This type of presentation suggests a severe neurocognitive disorder, likely due to Alzheimer disease. 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 RECOMMENDATIONS: The patient will require 24-hour care that includes assistance in the management of medication, nutrition and finances. A treatment program for neurocognitive disorder is indicated. The patient has decreased insight into his deficits which places him at increased safety risk. The patient is likely to function much better at home rather than in the hospital environment. A familiar routine in a familiar environment will assist his overall adjustment. Thank you very much for allowing me to provide the consultation on this patient. ��������������������������������������������� <ELECTRONICALLY SIGNED> ���������������������������������������� By: Faisal Gordon, PhD ��������������������������������������������� 02/06/19 0724 [id number] Faisal Gordon, PhD /nt
[2019-02-06 09:10] VITALS: BP 126/66
[2019-02-06 19:15] VITALS: BP 122/59
--- NOTE | 2019-02-06 19:52 | NUR ---
PATIENT ORIENTED TO SELF AND COOPERATIVE WITH PLAN OF CARE. PATIENT NEEDS ENCORAGEMENT TO DRINK. URINE CONCENTRATED. PATIENT STEADY WITH GAIT AND ASSIST X 1. SEMAJ NORMAN AT BEDSIDE THIS EVENING.
--- NOTE | 2019-02-07 04:44 | NUR ---
ASSUMED CARE AT 1900, ASSESSMENT COMPLETED. PT ALERT TO SELF, UNSURE OF TIME AND LOCATION, THOUGHT HE HAD BEEN LEFT ALONE ALL DAY AND DID NOT REMEMBER STAFF WORKING WITH HIM. DENIED ANY PAIN, NAUSEA, OR SOB. ENCOURAGED PT TO DRINK MORE FLUIDS; PT HAD NOT URINATE MUCH DURING THE DAY, HAD TO TAKE HIM INTO THE BATHROOM AND ASK HIM TO TRY TO URINATE. HE WAS ABLE TO VOID, URINE WAS VERY DARK YELLOW. REQUIRED MULTIPLE CUES AND PHYSICALLY GUIDING WALKER TO GET PT FROM HIS CHAIR TO THE BATHROOM AND BACK TO THE BED; HE WALKED WELL, NORMAL GAIT BUT DUE TO POOR VISION HAD TROUBLE MOVING AROUND THE ROOM. ASSISTED PT TO CHANGE OUT OF CLOTHES INTO A GOWN FOR BED, PT HELPED VERY LITTLE WITH THIS. NO OTHER CONCERNS, WILL CONTINUE TO MONITOR.
[2019-02-07 08:10] VITALS: BP 136/84
--- NOTE | 2019-02-07 12:45 | NUR ---
team meeting, recommendation: [facility]th home hh (pt, ot, st, nursing, sw). pt will need 24hr supervision rt cognition. pt needing clues. training and education to be set up to work with therapy.
[2019-02-07 19:35] VITALS: BP 115/64
--- NOTE | 2019-02-07 20:19 | NUR ---
PATIENT ORIENTED TO SELF. PATIENT DRINKING MORE TODAY AND HAD BM TODAY. PATIENT COOPERATIVE AND PARTICIPATES IN THERAPIES. FAMILY AT BEDSIDE AND REQUESTS TO TAKE PATIENT HOME TODAY B/C THEY FEEL THEY CAN DO THE SAME INTERVENTIONS AT HOME THAT IS BEING DONE ON THE REHAB UNIT. GINO PLASCENCIA, SPOKE WITH PATIENT SPOUSE AND DECIDED TO STAY LONGER BUT WILL TAKE IT DAY BY DAY. SON, ZULEMA, AND GRANDDAUGHTER, RAVI UNDERSTAND HE SHOULD BE MEDICALLY STABLE AND HAVE SUPPORT SYSTEM IN PLACE BEFORE DISCHARGE.
--- NOTE | 2019-02-08 03:09 | NUR ---
ASSESSMENT: PT REMAIN ALERT AND ORIENT TIMES THREE WITH SOME FORGETFULNESS. UP TO BR WITH WALKER AND GB, GAIT UNSTEADY. TURNED EVERY TWO HOURS. PT IS ABLE TO TURN SELF WITH ENCOURAGEMENT. VSS, AFEBRILE. ENCOIURAGED TO TAKE IN MORE FLUIIDS. C/O LIPS FEELING CHAPPED, MOISTURIZER APPLIED. WAS NOT IMPULSIVE THIS SHIFT, APPROPRIATELY USED CALL BUTTON. SLOW PROGRESS TOWARDS DC GOAL. WILL CONTINUE TO MONITOR.
[2019-02-08 08:00] VITALS: BP 131/61
--- NOTE | 2019-02-08 09:51 | NUR ---
FAXED REFERRAL TO [facility] SPOKE WITH ADAM IN ADM. SHE RECEIVED REFERRAL AND WILL REVIEW.
--- NOTE | 2019-02-08 13:06 | NUR ---
Nutrition followup. pt continues on rehab unit. Diet remains pureed now thin liquids. PO intake is variable from 10-100% of meals. ST reports low po r/t dementia and sight issues. Eats well if someone sits with him and assists. This has been discussed with nsg. Prior stable weights past 9 months, no new weight since admit, request new wt. Continue ensure pudding supplements as pt enjoys these and encourage consistent assist at all meals. Continue as low risk with interventions in place.
--- NOTE | 2019-02-08 15:43 | NUR ---
cm visited with lula at bedside and allen 2nd poa/dpoa rt dcp, 24 hour supervision with queuing, puree diet with thin liquids, provided snf list and senior blue book for resources outside the home. [facility] has accepted for h[facility] at [facility]. " we can do this niece can come over for visit for little bit and can get some help as well if needed"/lula.
--- NOTE | 2019-02-08 16:27 | NUR ---
ASSUMED CARE OF PATIENT AT 0715, PATIENT ALERT X 1-2 CAN FOLLOW COMMANDS WITH QUES, HE KNOWS HIS NAME. UP WITH GAIT BELT AND WALKER. PATIENT IS LEGALLY BLIND, FALL PRECAUTIONS IN PLACE. NO C/O PAIN THIS SHIFT. PATIENT TAKES MEDS WHOLE WITH APPLE SAUCE, PUREED DIET, MONITOR FOR ASPIRATION. TEAM MEETING WITH FAMILY DONE, AND FAMILY WANTS PATIENT TO COME HOME. PATIENT CAN BE IMPULSIVE BUT CAN BE REDIRECTED. WILL CONTINUE TO MONITOR.
[2019-02-08 19:25] VITALS: BP 112/48
--- NOTE | 2019-02-09 05:50 | NUR ---
PATIENT ALERT AND ORIENTED TO PERSON AND SOMETIME PLACE. PATIENT CAN BE IMPULSIVE. IS LEGALLY BLIND. UP WITH WALKER AND GAITBELT. DENIES PAIN. SLEPT MOST OF NIGHT.
[2019-02-09 07:35] VITALS: BP 107/53
--- NOTE | 2019-02-09 10:44 | NUR ---
ASSUMED CARES AT 0700. PT ORIENTED TO PERSON AND SOMETIMES PLACE. CONFUSED, FORGETFUL. DENIES PAIN. VITALS REMAIN STABLE. CONTINUES TO HAVE BRUISING ON RLE, IMPROVING FROM PREVIOUSLY NOTED. UP WITH 1 SBA, CUES R/T BLINDNESS, GAITBELT AND WALKER. GRANDDAUGHTER RAVI CALLED ON BEHALF OF PT'S (GLORY) REQUESTING PT'S DISCHARGE TODAY. DR CHRISTIANSON AND DR DANG CONTACTED REGARDING THIS REQUEST. CASE MANAGEMENT ALSO CONTACTED AND WORKING ON DISMISSAL PLANS. PT'S TEACHING TO BE COMPLETED WITH PT'S GRANDDAUGHTER AND UPON DC. Q1H VISUAL CHECKS. CALL LIGHT WITHIN REACH. FALL PRECAUTIONS IN PLACE
[2019-02-09 12:05] LABS: HEMATOCRIT 38.7 % (42.0-52.0); HEMOGLOBIN 13.2 gm/dL (14.0-18.0); MCH 32.2 pg (26.0-34.0); MCHC 34.2 g/dL (28.0-37.0); MCV 94.3 fL (80.0-100.0); RBC 4.1 mil/uL (4.50-6.00); RDW 13.8 % (10.5-14.5); WBC 6.2 thou/uL (4.0-11.0)
[2019-02-09 12:13] LABS: CALCIUM 9.3 mg/dL (8.5-10.1); CREATININE 1.8 mg/dL (0.7-1.3); POTASSIUM 3.9 mmol/L (3.5-5.1)
[2019-02-09] MEDS ORDERED: COZAAR 50 MG TA50 M1 PO (12:20)
[2019-02-09 19:42] VITALS: BP 114/69
--- NOTE | 2019-02-10 00:05 | NUR ---
PT ASSESSMENT COMPLETED AND VSS. MEDS GIVEN ORDERED AND WELL TOLERATED. ENC PO FLUIDS EVERY TIME WHEN ENTERING THE ROOM. UP WITH ASST/GAIT/WALKER. VOIDING MODERATE AMOUNT OF YELLOW URINE. PT DENIES NEEDS. SLEEPING WELL. WILL CONTINUE TO MONITOR FREQUENTLY.
[2019-02-10 08:15] VITALS: BP 121/69
--- NOTE | 2019-02-10 11:21 | NUR ---
ASSUMED CARES AT 0700. PT AWAKE, ORIENTED TO PERSON, PLACE AND SOMETIMES SITUATION. CONFUSED AND FORGETFUL. REQUIRES CUES AND REMINDERS TO PERFORM ADLS. DENIES PAIN. VITALS REMAIN STABLE. STAFF CONTINUES TO PUSH ORAL FLUIDS EVERY HOUR AND PRN, PT TAKING 3-4SIPS AT A TIME. REMAINS ON ASPIRATION PRECAUTIONS, ON PUREED DIET, MONITORING WITH ORAL INTAKE. PT C/O ITCHING AROUND SCROTUM, HYDROCORTISONE CREAM APPLIED. REDNESS AND A SMALL BLISTER NOTED ALONG THE SACRAL RIDGE, BARRIER CREAM APPLIED, CONTINUE TO MONITOR. PT UP WITH MIN ASSIST, GAITBELT AND WALKER. Q1H VISUAL CHECKS. CALL LIGHT WITHIN REACH. FALL PRECAUTIONS IN PLACE
--- NOTE | 2019-02-10 14:40 | PLAN ---
[facility] [place] [address] REHAB UNIT PLAN OF CARE Name: ERICA RITCHIE Room #: 512-P [facility] IN M.R.#: [id number] Admission: 01/31/19 ������������������ Attend Phys: Jamel Vieyra MD Discharge: ������������������ Date of : 30 Report #: [id number] THIS REPORT FOR: //name// CC: Jamel Ahumada DATE OF SERVICE: 02/03/2019 PROGRESS NOTE/OVERALL PLAN OF CARE SUBJECTIVE: The patient is seen back today in followup. He was in no distress. Temperature 36.7, pulse 65, respirations 16, blood pressure 144/64. The patient is in no distress. Sit to stand transfers have been contact guard. Working on some front-wheeled walker ambulation. Lower body dressing is dependent. In speech, he has moderate to severe comprehension. Diet is pureed. He has [id number] dysphagia with nectar thick liquids versus thin liquids. ASSESSMENT: 1. Acute mental status changes with dementia and cerebrovascular accident. 2. Atrial fibrillation with restarting amiodarone. 3. Premorbid dementia, nevertheless living in the community with close family support. 4. Gastroesophageal reflux disease. 5. Urinary frequency with normal UA, likely due to benign prostatic hypertrophy. PLAN: The overall plan of care is based on the preadmission screen, post-admission physician evaluation and information garnered from therapy assessments. 1. Estimated length of stay is probably 10 days to 2 weeks and likely longer if warranted. 2. Medical prognosis is reasonably good. 3. Anticipated interventions includes the interdisciplinary acute inpatient rehabilitation program. 4. Anticipated functional outcomes would be for the patient to improve as far as basic mobility and ADLs, so he can return back to the home setting as well as swallowing issues. Discussion with speech therapy and we will go ahead and put an order in for a video swallow study as they are trying to delineate whether he needs thickened liquids or not. 5. Discharge destination would be back home with . 6. Expected therapy by discipline includes PT, OT and speech 1 hour per day [address] [address] REHAB UNIT PLAN OF CARE Name: ERICA RITCHIE Room #: 512-P [facility] IN .R.#: [id number] Admission: 01/31/19 ������������������ Attend Phys: Jamel Vieyra MD Discharge: ������������������ Date of : 30 Report #: [id number] each 5 days a week throughout the duration of the acute inpatient rehabilitation stay. ��������������������������������������������� <ELECTRONICALLY SIGNED> ���������������������������������������� By: Jamel Vieyra MD ��������������������������������������������� 02/10/19 1440 0930 1428 Jamel Vieyra MD /nt
--- NOTE | 2019-02-10 14:40 | H ---
[facility] [place] [address] HISTORY AND PHYSICAL Name: ERICA RITCHIE Room #: 512-P [facility] IN .R.#: [id number] Admission: 01/31/19 ������������������ Attend Phys: Jamel Vieyra MD Discharge: ������������������ Date of : 30 Report #: [id number] THIS REPORT FOR: //name// CC: Jamel Ahumada DATE OF SERVICE: 02/01/2019 HISTORY AND PHYSICAL AND POST-ADMISSION PHYSICIAN EVALUATION HISTORY OF PRESENT ILLNESS: The patient is an 88-year-old white male with a premorbid history of dementia, admitted with vertigo, weakness, and dizziness. CT of the head was negative. The patient was noted to have atrial fibrillation with restarting amiodarone. He was noted to have urinary frequency with normal UA, likely due to BPH continuing oxybutynin. Discharge diagnoses included acute mental status changes, dementia, and cerebrovascular accident. He has now been admitted for acute in-hospital inpatient rehabilitation. He has been noted to have a functional decline from his premorbid status. PAST MEDICAL HISTORY: Includes colon CA, GERD, cardiac catheterization with coronary artery disease 2 vessel, hypertension, elevated lipids, question of sick sinus syndrome and has the noted dementia. ALLERGIES: CIPROFLOXACIN AND FLAGYL. MEDICATIONS: Please see the full medication listing. This includes vitamins, herbals, and supplements per report. HABITS: No history of tobacco or alcohol abuse. SOCIAL HISTORY: Lives in a house with his . Premorbid front-wheeled walker ambulator. There are 3-4 steps in. He used a cane when out in the yard and a walker in the house and his family would be with him when he would be out walking in the yard. He was able to dress himself. He has an involved and involved niece as well. REVIEW OF SYSTEMS: No current complaints of chest pain, shortness of breath, abdominal discomfort. No fever or chills. No focal extremity pain complaints. No bowel or bladder changes. History is somewhat difficult with his dementia. PHYSICAL EXAMINATION: GENERAL: An 88-year-old white male in no obvious distress. VITAL SIGNS: His temperature is 97.5, pulse 85, respirations 20, blood pressure 188/84. NEUROLOGIC: He is edentulous, alert, cannot tell me the place or the year. We will follow basic 1 step commands. Somewhat hard of hearing. [facility] [address] [place] [address] HISTORY AND PHYSICAL Name: ERICA RITCHIE Room #: 512-P [facility] IN M.R.#: [id number] Admission: 01/31/19 ������������������ Attend Phys: Jamel Vieyra MD Discharge: ������������������ Date of : 30 Report #: [id number] HEENT: Facies appeared symmetric. CHEST: Sounded clear to auscultation. CARDIOVASCULAR: Regular rate and rhythm. ABDOMEN: He is of slender build. Bowel sounds positive, nontender. GENITOURINARY AND RECTAL: Deferred. EXTREMITIES: Functional range of motion of both upper extremities with strength grade 4-/5. Lower extremities functional range of motion, strength is grade 4-/5. No clonus. Negative Lima's. Functionally, he is min assist with sit to stand, min assist to ambulate a short distance with a front-wheeled walker. He does have severe cognitive deficits. ASSESSMENT: An 88-year-old white male with the following problem list: 1. Acute mental status changes with dementia and cerebrovascular accident. 2. Atrial fibrillation with restarting amiodarone. 3. Premorbid dementia, nevertheless living in the community with close family support. 4. Gastroesophageal reflux disease. 5. Urinary frequency with normal UA, likely due to benign prostatic hypertrophy. PLAN: The patient is admitted for acute in-hospital inpatient rehabilitation. From a postadmission physician evaluation perspective, there are no relevant changes since the preadmission screening. Please see the above noted review of prior and current medical and functional conditions and comorbidities. Please see the patient's previous and current functional status. As far as risk of complications, the patient has multiple medical comorbidities as noted above. Initial plan of care involves the interdisciplinary acute inpatient rehabilitation program with goal of maximizing his functional independence, he can hopefully return back to his prior living situation. Measurable functional goals would be for the patient to become modified independent with transfers, mobility, ADLs as well as cognitive communication things at his prior level, so he can return back to the home setting. Prognosis is reasonably good with estimated length of stay probably around 10 days to 2 weeks pending progress. Potential barriers would include his multiple medical comorbidities and decreased functional status. The patient meets diagnostic criteria for an acute in-hospital inpatient rehabilitation stay. He meets the medical necessity criteria and we will have his primary care physician continue to follow. He does have the tolerance for therapies and has appropriate discharge goals back to the home setting. [address] [address] HISTORY AND PHYSICAL Name: ERICA RITCHIE Room #: 512-P [facility] IN M.R.#: [id number] Admission: 01/31/19 ������������������ Attend Phys: Jamel Vieyra MD Discharge: ������������������ Date of : 30 Report #: [id number] ADDENDUM: I listened again to his heart and is more of an irregularly irregular rhythm, which goes along with his atrial fibrillation. ��������������������������������������������� <ELECTRONICALLY SIGNED> ���������������������������������������� By: Jamel Vieyra MD ��������������������������������������������� 02/10/19 1440 0906 [id number] Jamel Vieyra MD /nt
[2019-02-10 19:40] VITALS: BP 123/70
--- NOTE | 2019-02-11 02:51 | NUR ---
assumed care at approx 1900 evening 02/10. pt sitting up in recliner at change of shift visiting with phylicia at bedside. pt pleasant and cooperative. pt took hs meds with water and applesauce tolerating well. pt assisted with getting ready for bed and assist with turning q2. pt appears to be sleeping soundly with hourly rounding checks. bed alarm on and call light in reach. will continue to monitor.
[2019-02-11 07:18] VITALS: BP 157/85
--- NOTE | 2019-02-11 11:28 | NUR ---
ASSUMED CARE AT 0700. PATIENT IS ALERT AND ORIENTED X1 TO PERSON. PATIENT JONNATHAN'S. MARKETING PROJECT COORDINATOR ARE EQUAL. LUNGS ARE CLEAR. ABD IS SOFT WITH BSX4. PATIENT HAS NO EDEMA IN HIS LOWER EXTREMITIES. PATIENT IS UP WITH GAIT BELT AND ASSIST OF 1 STAFF TO THE DINING ROOM FOR MEALS. PATIENT IS TO BE ENCOURAGED TO DRINK MORE FLUIDS. COFFEE GIVEN PER REQUEST. VOIDING ARACELI COLORED URINE PER URINAL. FALL AND SAFETY PROTOCOLS IN PLACE. DENIES ANY PAIN AT THIS TIME. WILL CONTINUE TO MONITER.
[2019-02-11 20:12] VITALS: BP 156/65
--- NOTE | 2019-02-12 03:30 | NUR ---
assumed care at approx 1900 evening 02/11. pt sitting up in recliner at change of shift resting and family visiting for short time last night. pt assisted with urinal in bed tolerating well. pt took hs med with applesauce tolerating well. pt appears to be sleeping soundly with hourly rounding check. bed alarm on and call light in reach. will continue to monitor.
[2019-02-12 09:30] VITALS: BP 109/57
[2019-02-12 20:07] VITALS: BP 147/85
[2019-02-12 20:25] VITALS: BP 155/76
--- NOTE | 2019-02-12 20:45 | NUR ---
ASSUMED CARE AT APPROX 0715. PATIENT A/O X1. FORGETFUL. IMPULSIVE. UP X1 ASSIT GB WALKER AND CONTACT GUARD, REQUIRING STEP BY STEP DIRECTIONS WITH REPITITION FOR SAFETY. FALL PRECAUTIONS IN PLACE. PATIENT HAD SEVERAL SMALL, CONTINENT BOWEL MOVEMENTS THIS DATE. FLUIDS ENCOURAGED, PATIENT SUPERVISED WITH ROUNDS WHILE HE DRANK 4 OZ OF LIQUIDS AT A TIME. PATIENT'S GRANDAUGHTER NON-COMPLIANT WITH FALL PRECAUTIONS, SHE WOULD ASSIST HER GRANDFATHER OUT OF RECLINER WITHOUT CALLING FOR ASSISTANCE, SHE WAS HEARD FROM OUTSIDE ROOM STATING, "YOU GET UP WHEN YOU NEED TO, THEY WILL COME, THAT'S WHAT THEY GET PAID FOR." PATIENT'S GRANDAUGHTER RE-EDUCATED ON SAFETY PRECAUTIONS, ENCOURAGED TO ASSIST IN REMINDING PATIENT TO CALL FOR ASSISTANCE AND WAIT FOR STAFF. SHE STATED SHE IS OKAY WITH THAT. PATIENT BECAME DISORIENTED AFTER DINNER, AFTER GRANDDAUGHTER HAD LEFT. SET OFF CHAIR ALARM, WAS RE-ORIENTED AND ASSISTED TO BED. PATIENT RESTING IN BED AT CHANGE OF SHIFT.
--- NOTE | 2019-02-12 23:15 | NUR ---
PT ASSESSMENT COMPLETED AND VSS. MEDS GIVEN ORDERED AND WELL TOLERATED. FALL PRECAUTIONS IN PLACE. PT VERY CONFUSED AND CLIMBING OUT OF BED FREQUENTLY. ATTEMPTED TO REORIENT PT FREQUENTLY. NOW SLEEPING. RESTING WELL. WILL CONTINUE TO MONITOR FREQUENTLY.
[2019-02-13 08:30] VITALS: BP 185/84
[2019-02-13 19:22] VITALS: BP 106/60
--- NOTE | 2019-02-13 20:39 | NUR ---
ASSUMED CARE AT APPROX 0715. PATIENT A/O X1. FORGETFUL. IMPULSIVE. VISIBLE FROM NURSES STATION. ROUNDED ON HOURLY. FALL PRECAUTIONS IN PLACE. PARTICIPATED IN THERAPY. FAMILY AT BEDSIDE. PATIENT CALLED FOR ASSISTANCE APPROPRIATELY WITH FAMILY AT BEDSIDE THIS DATE. INCREASED ORAL INTAKE, ESPECIALLY FLUIDS, ENCOURAGED THIS DATE. PATIENT HAD MULTIPLE LOOSE BM'S. PROVIDER NOTIFIED, ORDERS TO HOLD LAXATIVES RECEIVED. PATIENT UP X1 ASSIST GB AND WALKER. RESTING IN RECLINER AT CHANGE OF SHIFT.
--- NOTE | 2019-02-14 04:02 | NUR ---
PT ASSESSMENT COMPLETED AND VSS. MEDS GIVEN ORDERED AND WELL TOLERATED. FALL PRECAUTIONS IN PLACE. UP TO THE BATHROOM WITH ASST/GAIT/WALKER. STEADY. PT NEEDS MANY CUES WHEN AMBULATING. VOIDING MODERATE AMOUNT OF DARK YELLOW URINE. PT VERY IS STILL VERY CONFUSED BUT LESS IMPULSIVE TONIGHT. SLEEPING WELL. WILL CONTINUE TO MONITORF REQUENTLY.
[2019-02-14 09:16] VITALS: BP 122/60
--- NOTE | 2019-02-14 11:20 | NUR ---
ASSUMED CARE AT 0700. PATIENT IS ALERT AND ORIENTED X1 TO PERSON, AND VERY FORGETFUL. PATIENT IS UP WITH ASSIST OF 1 STAFF AND GAITBELT. PATIENT PINO, SPECIAL DELIVERY MESSENGER ARE EQUAL. LUNGS ARE CLEAR. ABD IS SOFT WITH BSX4. VOIDING ARACELI COLORED URINE PER URINAL. UP TO THE DINING ROOM FOR MEALS. FALL AND SAFETY PROTOCOLS IN PLACE. DENIES ANY PAIN AT THIS TIME. WILL CONTINUE TO MONITER
--- NOTE | 2019-02-14 12:50 | NUR ---
team meeting, reccomendation dc , henna shankar (pt, ot, st, nursing). 24hr supervision with queuing will be with him and family support as well.
[2019-02-14 19:10] VITALS: BP 103/67
--- NOTE | 2019-02-15 03:30 | NUR ---
ASSESSMENT: PT REMAIN ALERT AND ORIENT TIMES TWO. DOES NOT KNOW SITUATION, NOR TIME. PT WAS SITTING UP IN THE CHAIR AT SHIFT CHANGE. POSSIBLE DC TO HOME AT 1300 LATER ON TODAY. TOLERATING PO INTAKE OF THIN LIQS WITH MEDS. SEEMS TO MORE CONFUSED AT NIGHT. SLOW PROGRESS TOWARDS DC GOALS, WILL CONTINUE TO MONITOR.
[2019-02-15 08:58] VITALS: BP 132/73; BP 135/81
[2019-02-15 10:10] VITALS: BP 135/81
--- NOTE | 2019-02-15 10:30 | NUR ---
ASSUMED CARE AT 0700. ASSISTED PT UP TO BATHROOM AND DRESSING SINCE PT WILL BE D/C HOME TODAY. PATIENT IS ALERT AND ORIENTED X1 TO PERSON, AND VERY FORGETFUL. [place]. HARD TO DIRECT AT TIME, BUT COOPERATIVE. PATIENT IS UP WITH ASSIST OF 1 STAFF AND GAITBELT. SURVEILLANCE SYSTEMS ANALYST ARE EQUAL. LUNGS ARE CLEAR. ABD IS SOFT WITH BSX4. HAD SMALL SOFT BM THIS AM. VOIDING ARACELI COLORED . UP TO THE DINING ROOM FOR BREAKFAST WITH CUEING. ATE 25% THIS AM. MEDS CRUSHED AND GIVEN WITH APPLE SAUCE . FALL AND SAFETY PROTOCOLS IN PLACE. DENIES ANY PAIN AT THIS TIME. PT WILL BE DISCHARGE HOME WITH AND WITH HH. SITTING IN RECLINER AND RUMMING WITH HIMSELF, NO SIGN OF DISCOMFORT. CHAIR ALARM IS ON. CALL LIGHT WITHIN REACH. CHECK FREQUENLY FOR NEEDS AND SAFETY.
--- NOTE | 2019-02-15 11:12 | NUR ---
Hh orders faxed to intake at [facility] ([place]). She confirmed receipt and start of care for tomorrow. Pt dcing home with family soon. Pt has needed dme in place. Case closed.
== END 2019-02-15 13:29 | disposition home health service (06) | DRG 66 ==
LOC: ENTRNSPT 02-15 13:09 → EDTRNSPTSTS 02-15 13:11
PROVIDERS: Family Medicine; Nurse Practitioner Acute Care; ADMIT Physical Medicine & Rehabilitation
DX: I63.9 Cerebral infarction, unspecified (principal); I48.91 Unspecified atrial fibrillation; K21.9 Gastro-esophageal reflux disease without esophagitis; E78.5 Hyperlipidemia, unspecified; K59.00 Constipation, unspecified; E87.6 Hypokalemia; F01.50 Vascular dementia, unspecified severity, without behavioral disturbance, psychotic disturbance, mood disturbance, and anxiety; I25.10 Atherosclerotic heart disease of native coronary artery without angina pectoris; I10 Essential (primary) hypertension; Z79.899 Other long term (current) drug therapy; Z85.038 Personal history of other malignant neoplasm of large intestine; Z88.1 Allergy status to other antibiotic agents; Z88.8 Allergy status to other drugs, medicaments and biological substances
CPT/HCPCS: 10112

== ENCOUNTER → 2020-01-02 | Outpatient (CLI) | payer OTHER, BC ==
[~2020-01-02] MED LIST changes: +COZAAR 50 MG TA50 M1 PO
== END ==
LOC: SJCVC 15:01
PROVIDERS: ATTEND Internal Medicine Cardiovascular Disease
DX: R94.31 Abnormal electrocardiogram [ECG] [EKG] (principal); I45.10 Unspecified right bundle-branch block; I25.10 Atherosclerotic heart disease of native coronary artery without angina pectoris; I48.91 Unspecified atrial fibrillation; E78.00 Pure hypercholesterolemia, unspecified; I10 Essential (primary) hypertension; Z86.73 Personal history of transient ischemic attack (TIA), and cerebral infarction without residual deficits